=== PATIENT | female | born 1990 | race Caucasian/White ===

== ENCOUNTER 2019-10-27 19:35 | Emergency (ER) | payer SELFPAY ==
[2019-10-27] MEDS ORDERED: IBUPROFEN 800 MG TABLET PO ONE (19:56)
--- NOTE | 2019-10-27 19:57 | ER Document Report ---
ED Medical Screen (RME) - General Chief Complaint: General Weakness Stated Complaint: INSECT BITE Time Seen by Provider: 10/27/19 19:55 Mode of Arrival: Ambulatory Information source: Patient Notes: Patient presents complaining of abdominal pain, chest pain and low back pain that started about 2 hours prior to arrival. Patient denies any nausea vomiting or diarrhea. Patient denies any urinary symptoms. Patient denies any fever. I have greeted and performed a rapid initial assessment of this patient. A comprehensive ED assessment and evaluation of the patient, analysis of test results and completion of the medical decision making process will be conducted by additional ED providers. Physical Exam - Vital signs Vitals: Temp Pulse Resp BP Pulse Ox 97.6 F 87 18 142/82 H 100 10/27/19 19:41 10/27/19 19:41 10/27/19 19:41 10/27/19 19:41 10/27/19 19:41 - General General appearance: Appears well, Alert In distress: None - Respiratory Respiratory status: No respiratory distress Chest status: Tender Breath sounds: Normal - Cardiovascular Rhythm: Regular Heart sounds: S1 appreciated, S2 appreciated Course - Vital Signs Vital signs: Temp Pulse Resp BP Pulse Ox 97.6 F 87 18 142/82 H 100 10/27/19 19:41 10/27/19 19:41 10/27/19 19:41 10/27/19 19:41 10/27/19 19:41
--- NOTE | 2019-10-27 20:53 | EKG REPORT ---
SEVERITY:- ABNORMAL ECG - SINUS RHYTHM LEFT ATRIAL ABNORMALITY : Confirmed by: Nohemy Mclaughlin MD 27-Oct-2019 20:53:07
[2019-10-27 20:58] LABS: ABSOLUTE MONOCYTES (AUTO) 0.7 10^3/uL (0.1-1.4); ABSOLUTE NEUT (AUTO) 6.9 10^3/uL (1.7-8.2); BASOPHILS % (AUTO) 0.3 % (0-2); EOSINOPHILS % (AUTO) 0.4 % (0-6); HEMOGLOBIN 14.7 g/dL (12.0-15.5); LYMPHOCYTES % (AUTO) 20.5 % (13-45); MEAN CORPUSCULAR HEMOGLOBIN 30.8 pg (27.0-33.4); MEAN CORPUSCULAR HGB CONC 33.5 g/dL (32.0-36.0); MEAN CORPUSCULAR VOLUME 92 fl (80-97); MONOCYTES % (AUTO) 7.7 % (3-13); PLATELET COUNT 355 10^3/uL (150-450); RED BLOOD COUNT 4.78 10^6/uL (3.72-5.28); RED CELL DISTRIBUTION WIDTH 12.8 % (11.5-14.0); SEGMENTED NEUTROPHILS % (AUTO) 71.1 % (42-78); TOTAL CELLS COUNTED % (AUTO) 100 %; WHITE BLOOD COUNT 9.7 10^3/uL (4.0-10.5)
--- NOTE | 2019-10-27 21:07 | RADIOLOGY REPORT (SQ) ---
EXAM DESCRIPTION: X-ray, single view of the chest CLINICAL HISTORY: 29 years Female, cp COMPARISON: None. FINDINGS: Lungs: Lungs are clear. No pneumonia or edema. No pneumothorax or pleural effusion. Mediastinum: Cardiac and mediastinal silhouette are normal. Bones: Osseous structures are normal. IMPRESSION: Unremarkable single view of the chest. No acute process.
[2019-10-27 21:16] LABS: ALKALINE PHOSPHATASE 52 U/L (38-126); ANION GAP 9 (5-19); ASPARTATE AMINO TRANSFERASE 31 U/L (14-36); BILIRUBIN,DIRECT 0.3 mg/dL (0.0-0.4); BILIRUBIN,TOTAL 0.5 mg/dL (0.2-1.3); BLOOD UREA NITROGEN 22 mg/dL (7-20); CALCIUM 9.9 mg/dL (8.4-10.2); CARBON DIOXIDE 28 mmol/L (22-30); CHLORIDE 101 mmol/L (98-107); CREATINE KINASE 119 U/L (30-135); GLUCOSE 135 mg/dL (75-110); POTASSIUM 4.9 mmol/L (3.6-5.0); TOTAL PROTEIN 8.4 g/dL (6.3-8.2)
[2019-10-27] MEDS ORDERED: HYDROCODONE/ACETAMINOPHEN 5-325 MG TABLET PO ONE (22:23)
[2019-10-27 22:46] LABS: APPEARANCE,URINE CLEAR; BILIRUBIN,URINE NEGATIVE (NEGATIVE); COLOR,URINE YELLOW; GLUCOSE, URINE NEGATIVE (NEGATIVE); KETONES,URINE TRACE mg/dL (NEGATIVE); LEUKOCYTE ESTERASE,URINE NEGATIVE (NEGATIVE); NITRITE,URINE NEGATIVE (NEGATIVE); PROTEIN,URINE NEGATIVE (NEGATIVE); URINE SPECIFIC GRAVITY 1.025; UROBILINOGEN,URINE NEGATIVE mg/dL (<2.0)
[2019-10-27] MEDS ORDERED: IBUPROFEN 800 MG TABLET ONE (22:59)
--- NOTE | 2019-10-28 | ER Document Report ---
ED General - General Chief Complaint: General Weakness Stated Complaint: INSECT BITE Time Seen by Provider: 10/27/19 19:55 Mode of Arrival: Ambulatory Information source: Patient - HPI Notes: Patient states that she was trying to climb into an aboveground pool that she put her hand over the side she felt something bite her finger. She states she did not see what it may have been. She states she then searched around the pool and did see a spider that was brown with white spots. She states she is unsure if this is what bit her. She states [place] then [place] and began to have severe pain that went from her pelvis area to her shoulders and that she felt tight and somewhat short of breath. This pain is been constant. It is worse with movement and better with rest. It is a "tight" sensation. She is never had it before nor she ever reacted to any type of insect bite in a similar fashion. No vomiting or nausea. Past Medical History - General Information source: Patient - Social History Smoking Status: Never Smoker Frequency of alcohol use: None Drug Abuse: None Family History: Reviewed & Not Pertinent Review of Systems - Review of Systems Constitutional: denies: Chills, Fever Respiratory: Short of breath. denies: Cough Gastrointestinal: Abdominal pain. denies: Vomiting -: Yes All other systems reviewed and negative Physical Exam - Vital signs Vitals: Temp Pulse Resp BP Pulse Ox 97.6 F 87 18 142/82 H 100 10/27/19 19:41 10/27/19 19:41 10/27/19 19:41 10/27/19 19:41 10/27/19 19:41 Interpretation: Normal - General General appearance: Appears well, Alert - HEENT Head: Normocephalic, Atraumatic Eyes: Normal Pupils: PERRL - Respiratory Respiratory status: No respiratory distress Chest status: Nontender Breath sounds: Normal Chest palpation: Normal - Cardiovascular Rhythm: Regular Heart sounds: Normal auscultation Murmur: No - Abdominal Inspection: Normal Distension: No distension Bowel sounds: Normal Tenderness: Nontender Organomegaly: No organomegaly - Back Back: Normal, Nontender - Extremities General upper extremity: Normal color, Normal ROM, Normal temperature, Other - Patient's right ring finger has erythema at tip. no significant tenderness. General lower extremity: Normal inspection, Nontender, Normal color, Normal ROM, Normal temperature, Normal weight bearing. No: Tello's sign - Neurological Neuro grossly intact: Yes Cognition: Normal Orientation: AAOx4 Julio Coma Scale Eye Opening: Spontaneous Julio Coma Scale Verbal: Oriented [place] Coma Scale Motor: Obeys Commands [place] Coma Scale Total: 15 Speech: Normal Motor strength normal: LUE, RUE, LLE, RLE Sensory: Normal - Psychological Associated symptoms: Normal affect, Normal mood - Skin Skin Temperature: Warm Skin Moisture: Dry Skin Color: Erythema Course - Re-evaluation Re-evalutation: 10/27/19 23:58 Patient presents with abdominal and chest tightness after he possible insect bite. She is shows no evidence of anaphylaxis or significant systemic reaction. The spider she describes is not a black however the symptoms that she describes could possibly be a black with the abdominal and chest tightness. Laboratory values are unremarkable. Patient's vital signs are unremarkable. Patient appears in no distress and is comfortable with being discharged. This seems to be a reasonable disposition at this time. - Vital Signs Vital signs: Temp Pulse Resp BP Pulse Ox 97.6 F 87 18 142/82 H 100 10/27/19 19:41 10/27/19 19:41 10/27/19 19:41 10/27/19 19:41 10/27/19 19:41 - Laboratory Result Diagrams: 10/27/19 20:27 10/27/19 20:27 Laboratory results interpreted by me: 10/27/19 10/27/19 20:27 22:30 BUN 22 H Glucose 135 H Total Protein 8.4 H Urine Ketones TRACE H - Diagnostic Test Radiology reviewed: Image reviewed, Reports reviewed - EKG Interpretation by Ar EKG shows normal: Sinus rhythm Rate: Normal - 79 Rhythm: NSR [place]/QRS: No: Right axis deviation, Left axis deviation Discharge - Discharge Clinical Impression: Insect bite Qualifiers: Encounter type: initial encounter Site of insect bite: finger Finger: ring finger Laterality: right Qualified Code(s): S60.464A - Insect bite (nonvenomous) of right ring finger, initial encounter Condition: Stable Disposition: HOME, SELF-CARE Instructions: Black Spider Bite ([facility]) Prescriptions: Hydrocodone/Acetaminophen [[place] 5-325 mg Tablet] 1 tab PO Q6 PRN 3 Days #12 tablet PRN Reason: Referrals: [facility] ([place], [place]) [Provider Group] - Follow up as needed
[2019-10-28 00:26] VITALS: BP 118/71
== END 2019-10-28 00:25 | disposition home or self-care (01) ==
LOC: ER 19:35
DX: S60.464A Insect bite (nonvenomous) of right ring finger, initial encounter (principal); R53.1 Weakness; R06.02 Shortness of breath; R10.9 Unspecified abdominal pain; W57.XXXA Bitten or stung by nonvenomous insect and other nonvenomous arthropods, initial encounter
CPT/HCPCS: 36415; 71045; 80053; 81001; 82550; 83690; 84703; 85025; 93005; 93010; 99285